=== PATIENT | male | born 1960 | race Caucasian/White ===

== ENCOUNTER → 2016-07-08 | Outpatient (CLI) | payer OTHER ==
--- NOTE | 2016-07-08 10:08 | US ---
Testicular Sonography with Color and Spectral Doppler Assessment Clinical History: 56-year-old male with an area of palpable concern and swelling in the right scrotum . Rule out testicular mass. The patient has had a prior remote vasectomy. ICD-10 Diagnostic Code: N50.9. Technique: A linear 12 MHz transducer was used to sonographically evaluate each hemiscrotum. Color Do ppler and spectral Doppler are used. A cine clip was acquired through the area of palpable concern at the level of the right epididymis. Comparison Study: None. Findings: Right Hemiscrotum: The testis measures 4.1 x 2.9 x 3.0 cm, and there are some normal-appearing linear striations with no focal mass. Intratesticular arterial and venous flow is documented, with a resist chris index of 0.52. There is a small right hydrocele, which contains some debris and is partially sept ated (please reference images [id number]). There is no varicocele. There are a couple of epididymal head c ysts, the largest measuring 3 x 3 x 3 mm in diameter. 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 The area of palpable concern according to the patient appears to correspond to an elongate por tion of the epididymis. There is no epididymal mass or hyperemia, however. Left Hemiscrotum: The testis is normal in size, shape, and position, with some minimal striations, bu t no focal mass. It measures 3.5 x 2.3 x 3.0 cm. Intratesticular vascular flow is documented with a r esistive index of 0.65. There is a small left hydrocele. There is a 4 x 6 x 8 mm epididymal head cyst . There is no varicocele. Impression: 1. There is no evidence of a testicular mass. 2. Benign-appearing epididymal head cyst. 3. The area of palpable concern corresponds to the elongate portion of the right epididymis. There is no underlying epididymal solid mass or hyperemia. 4. Small bilateral hydroceles.
== END ==
LOC: BRMIMAGING 08:37
PROVIDERS: ATTEND Physician Assistant
DX: N50.9 Disorder of male genital organs, unspecified (principal); N50.3 Cyst of epididymis; N43.3 Hydrocele, unspecified
CPT/HCPCS: 76870-PO